=== PATIENT | male | born 1980 | race Caucasian/White ===

== ENCOUNTER 2018-05-18 23:27 | Emergency (ER) | payer MEDICAID, OTHER ==
[~2018-05-18] VITALS: Ht 175.3 cm; Wt 122.5 kg
[~2018-05-18 23:27] MED LIST: ALBUTEROL SULF8.5 GM INH; ALPRAZOLAM1 MG PO; AMOXICILLIN500 MG PO; AZITHROMYCIN250 MG ORAL; IBUPROFEN800 MG PO; KEFLEX500 MG PO; NKM; PREDNISONE50 MG PO; PROMETHAZINE-C118 M1 ORAL; TAMIFLU75 MG ORAL
[2018-05-18 23:44] VITALS: BP 146/95
--- NOTE | 2018-05-18 23:46 | NUR ---
ED Nurse Note: Patient presents to ED c/o syncopal episode in shower while trying to throw up. patient AOx4, VSS, ambulatory with steady gait, no s/s of acute distress noted at this time. patient seen by ERMD at bedside. Patient has superficial laceration to top of forehead. Patient pupils are PERRL. Patient denies N/V.
--- NOTE | 2018-05-19 00:05 | Emergency Room Report ---
History of Present Illness General Chief Complaint: Head Injury Source: Patient Present Illness HPI Is a 37-year-old male with no past mental history. He presents with chief complaint of head injury. 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 Said that he couldn't sleep for 24 hours. His gave him a drink to calm his mind. 7 AM this morning he was taking a shower to go to work. He felt nauseous so he try to cause himself to vomit. He said he passed out hit his head on the wall. He was out for a few seconds. He went to work without a problem. Came home without a problem. He took 3 Ambien and went to sleep. to communicate to make sure he has no concussion or bleeding. Patient said he felt fine. Allergies: Coded Allergies: No Known Allergies (Unverified , 02/28/12) Patient History Past Medical History: see triage record, old chart reviewed Past Surgical History: other Pertinent Family History: none Social History: Denies: smoking Immunizations: other Reviewed Nursing Documentation: PMH: Agreed; PSxH: Agreed Nursing Documentation-PMH Hx Asthma: Yes - Childhood asthma Review of Systems Eye: Denies: eye pain, blurred vision ENT: Denies: ear pain, nose congestion, throat swelling Respiratory: Denies: cough, shortness of breath Cardiovascular: Denies: chest pain, palpitations Gastrointestinal: Denies: abdominal pain, diarrhea, nausea, vomiting Musculoskeletal: Denies: back pain, joint pain Skin: Denies: rash Neurological: Denies: headache, numbness Endocrine: Denies: increased thirst, increased urine Hematologic/Lymphatic: Denies: easy bruising All Other Systems: negative except mentioned in HPI Physical Exam Vital Signs Date Time Temp Pulse Resp B/P (MAP) Pulse Ox O2 Delivery O2 Flow Rate FiO2 05/18/18 23:30 98.2 84 18 146/95 95 Room Air vitals normal Sp02 EP Interpretation: reviewed, normal General Appearance: well appearing, no apparent distress, alert Head: normocephalic, other - Superficial abrasion to frontal scalp Eyes: bilateral eye PERRL, bilateral eye EOMI ENT: hearing grossly normal, normal pharynx Neck: full range of motion, supple, no meningismus Respiratory: chest non-tender, lungs clear, normal breath sounds Cardiovascular #1: regular rate, rhythm, no murmur Gastrointestinal: normal bowel sounds, non tender, no mass, no organomegaly, no bruit, non-distended Musculoskeletal: back normal, gait/station normal, normal range of motion Psychiatric: mood/affect normal Skin: warm/dry Medical Decision Making Diagnostic Impression: Primary Impression: Acute head injury Qualified Codes: S09.90XA - Unspecified injury of head, initial encounter ER Course Patient with head injury. No evidence of any intracranial bleeding or skull fracture. We'll discharge home. CT/MRI/US Diagnostic Results CT/MRI/US Diagnostic Results : Imaging Test Ordered: CT head Impression negative per radiologist Last Vital Signs Date Time Temp Pulse Resp B/P (MAP) Pulse Ox O2 Delivery O2 Flow Rate FiO2 05/18/18 23:44 98.2 70 18 146/95 95 Room Air Status: improved Disposition: HOME, SELF-CARE Condition: Stable Referrals: [facility],REFERRING (PCP) Additional Instructions: Follow-up with your doctor in 7 days. Return if symptom worsen. Demond Mcmahon MD May 19, 2018 00:05
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
== END 2018-05-19 00:13 | disposition home or self-care (01) ==
LOC: EMR 23:53
DX: S09.90XA Unspecified injury of head, initial encounter (principal); W22.09XA Striking against other stationary object, initial encounter; Y92.002 Bathroom of unspecified non-institutional (private) residence as the place of occurrence of the external cause
CPT/HCPCS: 70450; 99284

== ENCOUNTER 2018-06-21 22:05 | Emergency (ER) | payer OTHER ==
[~2018-06-21] VITALS: Ht 175.3 cm; Wt 113.4 kg
[2018-06-21 22:20] VITALS: BP 120/69
--- NOTE | 2018-06-21 22:23 | NUR ---
ED Nurse Note: Pt arrived ambulatory with mother with complaint of cough for 3 days straight. Pt states he has been experiencing night sweats as well. No other symptoms noted. VSS.
[2018-06-22] MEDS ORDERED: ADULT WAL-100 MG/5 M ORAL (00:27)
[2018-06-22] MEDS ORDERED: CLARITIN-D 121 EAC1 ORAL (01:52)
--- NOTE | 2018-06-22 02:04 | NUR ---
ED Nurse Note: Pt cleared by . Pt A/Ox4, ambulatory with steady gait. Discharge paperwork and instructions provided. Pt verbalized understanding of all instructions. ID band removed. All belongings taken with patient.
[2018-06-22 02:05] VITALS: BP 123/99
--- NOTE | 2018-06-22 22:01 | Emergency Room Report ---
History of Present Illness General Chief Complaint: Upper Respiratory Illness Source: Patient Present Illness HPI Patient is a 37-year-old male presented after increased nonproductive cough. Patient gradual onset of symptoms over the past few days. Patient had a sick contacts at home. He denies any fever. Cough is been persistent throughout the day. He denies any shortness of breath. Patient was not having any new leg pain or swelling. He reports having some nasal congestion as well as some mild sore throat. He denies any vocal changes. Allergies: Coded Allergies: No Known Allergies (Unverified , 02/28/12) Patient History Past Medical History: see triage record Reviewed Nursing Documentation: PMH: Agreed; PSxH: Agreed Nursing Documentation-PMH Past Medical History: No Stated History Hx Asthma: Yes - Childhood asthma Review of Systems All Other Systems: negative except mentioned in HPI Physical Exam Vital Signs Date Time Temp Pulse Resp B/P (MAP) Pulse Ox O2 Delivery O2 Flow Rate FiO2 06/21/18 22:13 98.4 84 16 93 Room Air 06/21/18 22:20 120/69 Sp02 EP Interpretation: reviewed, normal General Appearance: normal inspection, well appearing, no apparent distress, alert, GCS 15 Head: atraumatic ENT: normal ENT inspection, hearing grossly normal, normal voice Neck: normal inspection, full range of motion, supple, no bony tend Respiratory: normal inspection, lungs clear, normal breath sounds, no respiratory distress, no retraction, no wheezing Cardiovascular #1: regular rate, rhythm, no edema Gastrointestinal: normal inspection, normal bowel sounds, non tender, soft, no guarding, no hernia Genitourinary: no CVA tenderness Musculoskeletal: normal inspection, back normal, normal range of motion Neurologic: normal inspection, alert, oriented x3, responsive, cafeteria monitor III-XII nml as tested, speech normal Psychiatric: normal inspection, judgement/insight normal, mood/affect normal Skin: normal inspection, normal color, no rash Medical Decision Making Diagnostic Impression: Primary Impression: Upper respiratory infection Additional Impression: Upper respiratory symptom ER Course Patient presented for cough. Differential diagnosis included but was not limited to upper respiratory infection, allergic rhinitis, bronchitis, pneumonia , pulmonary embolism, pericarditis, asthma, foreign body. Patient has a benign exam and does not appear to require any further imaging or laboratory testing at this time. Patient was noted to have what appears to be a viral respiratory infection. Patient was given medications for symptomatic treatment. He does not appear to require any x-ray imaging at this time. Patient's mom is also sick with similar illness. Patient shows no evidence of measles type rash or conjunctivitis. Patient will be discharged home. He is to follow-up with his primary care physician for recheck in the next few days. Last Vital Signs Date Time Temp Pulse Resp B/P (MAP) Pulse Ox O2 Delivery O2 Flow Rate FiO2 06/22/18 02:05 98.3 66 20 123/99 96 Room Air Status: improved Disposition: HOME, SELF-CARE Condition: Stable Scripts Loratadine/Pseudoephedrine (CLARITIN-D 12 HOUR TABLET) 1 Each Tab.er.12h 1 TAB ORAL EVERY 12 HOURS, #20 TAB Prov: Gibson Liriano MD 06/22/18 Guaifenesin* (ADULT WAL-TUSSIN*) 100 Mg/5 Ml Liquid 5 ML ORAL Q4H, #120 ML Prov: Gibson Liriano MD 06/22/18 Referrals: [facility],REFERRING (PCP) Patient Instructions: Upper Respiratory Infection, Adult Gibson Liriano MD June 22, 2018 22:01
== END 2018-06-22 02:05 | disposition home or self-care (01) ==
LOC: EMR 22:55
DX: J06.9 Acute upper respiratory infection, unspecified (principal)
CPT/HCPCS: 99282

== ENCOUNTER 2019-01-02 18:51 | Emergency (ER) | payer OTHER ==
[~2019-01-02] VITALS: Ht 177.8 cm; Wt 115.7 kg
[~2019-01-02 18:51] MED LIST changes: +ADULT WAL-100 MG/5 M ORAL; +CLARITIN-D 121 EAC1 ORAL
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
[2019-01-02 19:30] VITALS: BP 127/84
--- NOTE | 2019-01-02 20:29 | Diagnostic Imaging Report ---
Indication: Headache Technique: Contiguous 5 mm thick transaxial imaging of the head obtained in a Siemens Sensation [address] scanner. Soft tissue and bone windows generated. Automatic Exposure Control was utilized. Total Dose length Product (DLP): 1363.[address] Dose Index Volume (CTDIvol): 62.7 mGy Comparison: 05/19/2018 Findings: The size and configuration of the cortical sulci, basal cisterns, and ventricles are within normal limits for age. There is no mass effect, midline shift, or edema identified. There is no evidence of acute hemorrhage or abnormal intra-axial or extra-axial fluid collections. The bones and soft tissues are unremarkable. There is mild degree mucosal thickening within the visualized paranasal sinuses. There is fracture of the nasal bone which appears old. Impression: No mass effect, edema or acute bleed. Sinusitis. Old nasal fracture. [facility] has communicated the preliminary results to the Emergency Department. Their findings are largely concordant with this report. The CT scanner at [facility] is accredited by the [employer] and the scans are performed using dose optimization techniques as appropriate to a performed exam including Automatic Exposure control.
--- NOTE | 2019-01-02 20:29 | Diagnostic Imaging Report ---
Indication: Cervical trauma/pain. Technique: Continuous helical imaging of the cervical spine was obtained transaxially from the skull base to the upper thoracic spine. 2-D coronal and sagittal reformatted images were obtained. Automatic Exposure Control was utilized. Total Dose length Product (DLP): [address] Dose Index Volume (CTDIvol): 10.4 mGy Comparison: None Findings: There is no acute fracture or malalignment identified. There is no soft tissue swelling identified. Mild uncovertebral arthritis is demonstrated at C4-5, C5-6 C6-7. There is slight reversal of cervical lordosis with intervertebral discs showing mild narrowing. Impression: No acute injury Mild spondylosis [facility] has communicated the preliminary results to the Emergency Department. Their findings are largely concordant with this report. The CT scanner at [facility] is accredited by the [employer] and the scans are performed using dose optimization techniques as appropriate to a performed exam including Automatic Exposure control.
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
[2019-01-02] MEDS ORDERED: IBU800 MG PO (20:41)
[2019-01-02] MEDS ORDERED: ROBAXIN-500MG ORAL (20:41)
[2019-01-02] MEDS ORDERED: LIDODERM700 M1 TOPIC (20:41)
[2019-01-02] MEDS ORDERED: Methocarbamol 500mg tab ORAL ONE (20:45)
[2019-01-02 21:15] VITALS: BP 128/83
--- NOTE | 2019-01-02 21:15 | NUR ---
ER DISCHARGE NOTE: Patient is cleared to be discharged per ERMD, pt is aox4, on room air, with stable vital signs. pt was given dc and prescription instructions, pt was able to verbalize understanding, pt id band removed without complications. pt is able to ambulate with steady gait. pt took all belongings.
--- NOTE | 2019-01-03 12:34 | Diagnostic Imaging Report ---
Indication: Back pain Comparison: None Findings: 3 views of the lumbar spine were obtained. No fracture or malalignment identified. Bones appear osteopenic. Vertebral endplate scalloping and mild osteophytes noted. Soft tissues are unremarkable. IMPRESSION: Mild degenerative changes as described above
== END 2019-01-02 21:25 | disposition home or self-care (01) ==
LOC: EMR 20:19
DX: S13.9XXA Sprain of joints and ligaments of unspecified parts of neck, initial encounter (principal); S00.93XA Contusion of unspecified part of head, initial encounter; S33.5XXA Sprain of ligaments of lumbar spine, initial encounter; V43.52XA Car driver injured in collision with other type car in traffic accident, initial encounter; Y92.410 Unspecified street and highway as the place of occurrence of the external cause
CPT/HCPCS: 70450; 72020; 72125; 99284

== ENCOUNTER 2019-08-20 19:07 | Emergency (ER) | payer OTHER ==
[~2019-08-20] VITALS: Ht 177.8 cm; Wt 124.7 kg
[~2019-08-20 19:07] MED LIST changes: +IBU800 MG PO; +LIDODERM700 M1 TOPIC; +ROBAXIN-500MG ORAL
[2019-08-20 19:30] VITALS: BP 149/78
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
[2019-08-20] MEDS ORDERED: Methocarbamol 750mg tab ORAL ONE (19:45)
[2019-08-20] MEDS ORDERED: Ketorolac 30mg Inj IM ONE (19:45)
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
--- NOTE | 2019-08-20 21:00 | NUR ---
ED Nurse Note: Pt states he is feeling much better and that pain has resolved with medication.
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
[2019-08-20] MEDS ORDERED: IBU800 MG PO (21:13)
[2019-08-20] MEDS ORDERED: ROBAXIN-500MG ORAL (21:13)
[2019-08-20] MEDS ORDERED: LIDODERM700 M1 TOPIC (21:13)
[2019-08-20 21:20] VITALS: BP 138/75
--- NOTE | 2019-08-20 21:20 | NUR ---
ER DISCHARGE NOTE: Patient is cleared to be discharged per ERMD, pt is aox4, on room air, with stable vital signs. pt was given dc and prescription instructions, pt was able to verbalize understanding, pt id band removed. pt is able to ambulate with steady gait. pt took all belongings.
== END 2019-08-20 21:20 | disposition home or self-care (01) ==
LOC: EMR 19:55
DX: S16.1XXA Strain of muscle, fascia and tendon at neck level, initial encounter (principal); S29.012A Strain of muscle and tendon of back wall of thorax, initial encounter; S20.219A Contusion of unspecified front wall of thorax, initial encounter; V43.52XA Car driver injured in collision with other type car in traffic accident, initial encounter; Y92.410 Unspecified street and highway as the place of occurrence of the external cause
CPT/HCPCS: 71250; 72125; 72128; 96372; 99284; J1885